=== PATIENT | male | born 1940 | race Caucasian/White ===

== ENCOUNTER → 2016-12-04 19:03 | Outpatient (CLI) | payer MEDICARE, OTHER ==
[~2016-12-04 19:03] MED LIST: ELIQUIS2.5 MG PO; HYDROCODONE-APA1 TAB PO; OMEPRAZOLE20 M1 PO
[2016-12-17 15:09] VITALS: BMI 31.2
== END | disposition home or self-care (01) ==
LOC: D.LABREF 19:03
DX: M17.12 Unilateral primary osteoarthritis, left knee (principal); Z11.8 Encounter for screening for other infectious and parasitic diseases

== ENCOUNTER 2016-12-13 08:30 | Inpatient (IN) | payer MEDICARE, OTHER ==
[~2016-12-13] VITALS: Ht 182.9 cm; Wt 104.5 kg
[2016-12-13 08:29] LABS: BASOPHILS 0.3 % (0.0-2.0); EOSINOPHILS 3.4 % (0-7); HEMATOCRIT 47.6 % (42.0-54.0); HEMOGLOBIN 16.1 g/dL (13.5-17.5); IMMATURE GRANULOCYTES 0.2 % (0-5); LYMPHOCYTES 26.2 % (15-50); MCH 33.3 pg (26.0-34.0); MCHC 33.8 g/dL (31.0-37.0); MCV 98.3 fL (80.0-100.0); MEAN PLATELET VOLUME 10.7 fL (7.4-10.4); MONOCYTES 10.6 % (2-11); NEUTROPHILS 59.3 % (40-80); PLATELET COUNT 176 10x3/uL (130-400); RBC 4.84 10x6/uL (4.20-6.10); RDW 12.9 % (11.5-14.5); WBC 6.5 10x3/uL (4.8-10.8)
[~2016-12-13 08:30] MED LIST changes: -ELIQUIS2.5 MG PO; -HYDROCODONE-APA1 TAB PO
[2016-12-13 08:34] LABS: APTT 26.5 SECONDS (22.8-39.4); INR 1.07 (0.85-1.17); PROTIME 13.8 SECONDS (11.6-15.0)
[2016-12-13 08:41] LABS: CALC OSMOLALITY 285 mosm/kg (275-300); CALCIUM 9.1 mg/dL (8.5-10.1); CARBON DIOXIDE 30.5 mmol/L (21.0-32.0); CHLORIDE - SERUM 106 mmol/L (98-107); GLUCOSE 140 mg/dL (74-106); POTASSIUM - SERUM 4.5 mmol/L (3.5-5.1); SODIUM 142 mmol/L (136-145); UREA NITROGEN 14 mg/dL (7-18); eGFR NON AFRICAN AMERICAN 77 mL/min (90-120)
[2016-12-13 09:02] LABS: APPEARANCE CLEAR (CLEAR); COLOR YELLOW (YELLOW)
[2016-12-13 09:03] LABS: BILIRUBIN NEGATIVE (NEGATIVE); GLUCOSE NEGATIVE (NEGATIVE); KETONE NEGATIVE (NEGATIVE); LEUKOCYTE ESTERASE NEGATIVE (NEGATIVE); NITRITE NEGATIVE (NEGATIVE); PROTEIN NEGATIVE (NEGATIVE); UROBILINOGEN NORMAL (NORMAL)
[2016-12-17] VITALS (10 sets, daily range): BP systolic 124–146; BP diastolic 61–87; Ht 182.9 cm; Wt 104.5 kg
--- NOTE | 2016-12-17 09:07 | NUR ---
RIGTH KNEE SCRUBBED WITH ALCOHOL AND HIBICLENS
--- NOTE | 2016-12-17 10:38 | NUR ---
PATIENT TO UNIT AT THIS TIME. NO COMPLAINTS, VS STABLE. STATED NO PAIN. LSCD ON. RIGHT LEG WITH MARQUISE WRAP CDI. FAMILY AT BEDSIDE. CALL LIGHT WITHIN REACH. NEUROVASCULAR CHECKS WNL.
--- NOTE | 2016-12-17 12:00 | NUR ---
PATIENT TOLERATED REGULAR DIET WITH NO PROBLEMS AT THIS TIME.
--- NOTE | 2016-12-17 15:00 | NUR ---
PATIENT SITTING UP IN BED READING. NO COMPLAINTS AT THIS TIME. IV INTACT. VS STABLE. NEUROVASCULAR CHECKS WNL. CALL LIGHT WITHIN REACH.
--- NOTE | 2016-12-17 16:00 | NUR ---
IS GIVEN AND EXPLAINED TO PATIENT. VERBALIZED UNDERSTANDING. CALL LIGHT WITHIN REACH. VS STABLE. NEUROVASCULAR CHECKS WNL.
--- NOTE | 2016-12-17 18:45 | NUR ---
PATIENT IN BED WITH IV INTACT. CPM ON. STARTED AT 1830. NO COMPLAINTS OF PAIN AT THIS TIME. NEUROVASCULAR CHECKS INTACT. CALL LIGHT WITHIN REACH.
[2016-12-18 01:00] VITALS: BP 140/63
--- NOTE | 2016-12-18 01:33 | NUR ---
PATIENT RESTING IN BED ON CPM MACHINE. PATIENT DENIES NEEDS AT THIS TIME. BED IN LOWEST POSITION AND CALL LIGHT WITHIN REACH.
--- NOTE | 2016-12-18 07:30 | NUR ---
REC'D PATIENT LYING SEMI FOWLERS IN BED. ALERT AND ORIENTED X4. DENIES PAIN @ THIS TIME. DENIES HEARING PROBLEMS. WEARS GLASSES. MUCUS MEMBRANES PINK AND MOIST. SKIN WARM AND DRY. HAS ORIF TO THE RIGHT KNEE. CAST AND DRESSING. HAS A LEFT FORARM RUNNING @ 100ML NS. HAD A CPM ON, IS TO COME OFF @ 0830. HAS A LEFT SCD. LUNGS CLEAR IN ALL LOBES. BOWELS ACTIVE X4. ABDOMEN SOFT NON-TENDER TO TOUCH. PERIPHERAL PULESES @ 2+. IS GOING TO GET UP TODAY WITH PSYICAL THERAPY. BED LOW, LOCKED, CALL LIGHT IN REACH. INSTRUCTED TO CALL IF NEEDED ANYTHING. PATIENT VERBALIZED UNDERSTANDING.
[2016-12-18 08:19] VITALS: BP 143/57
[2016-12-18 08:23] LABS: HEMATOCRIT 39.4 % (42.0-54.0); HEMOGLOBIN 13.4 g/dL (13.5-17.5); MEAN PLATELET VOLUME 10.6 fL (7.4-10.4); RBC 4.06 10x6/uL (4.20-6.10); WBC 8.8 10x3/uL (4.8-10.8)
--- NOTE | 2016-12-18 08:45 | NUR ---
PYSICAL THERAPY CAME IN I WAS FLUSHING AND CHANGING OUT LINE IN THE IV. WAS CALLED BACK INTO THE ROOM BC BLOOD PRESSURE DROPPED AFTER HE WALKED. HE WAS WANTING SOMETHING FOR PAIN. ADMINISTERED PAIN MED PRESCRIBED. GOING TO COME BACK IN 30 MIN TO CHECK TO SEE IF PAIN HAS SUBSIDED. PATIENT IS NOW SITTING UP IN CHAIR READING BIBLE. CALL LIGHT IN REACH.
--- NOTE | 2016-12-18 09:00 | NUR ---
CHECKED BACK ON PATIENT WAS RESTING IN CHAIR. STATED HE WAS NO LONGER IN PAIN. INSTUCTED TO CALL IF NEEDED ANYTHING. PATIENT VERBALIZED UNDERSTANDING.
--- NOTE | 2016-12-18 10:49 | NUR ---
* Is the patient Alert and Oriented? Yes 0 * How many steps to enter\exit or inside your home? 1 0 * PCP Dr. Gutierrez 0 * Pharmacy [facility] on [address] 0 * Preadmission Environment Home with Family 0 * ADLs Independent 0 * Equipment Bedside Commode Cane Rolling Walker 0 * List name and contact numbers for known caregivers / representatives who currently or will assist patient after discharge: Spouse - Peggy [phone] 0 * Additional services required to return to the preadmission environment? Yes 0 * Can the patient safely return to the preadmission environment? Yes 0 * Has this patient been hospitalized within the prior 30 days at any hospital? No 12/18/2016 10:50 DCP: Discharge Planning Patient Name: LAUREN ZHANG Admission Status: Elective Accout number: [id number] Admission Date: 12-17-2016 : 1940 Admission Diagnosis: Attending: SARA Current LOS: 1 Anticipated DC Date: 12-19-2016 Planned Disposition: Outpatient PT\OT Primary Insurance: MEDICARE A & B Discharge Planning Comments: CM met with patient to assess dc plans/needs. Patient states he lives at home with his , Peggy. He reports he is independent with all ADL's & IADL's. He has a walker, cane, & BSC at home. A CPM has been ordered by MD office prior to admission through [facility] & will be delivered to the home after discharge. He has chosen to go to [facility] for OP services - appt. scheduled for 12/20 @ 1030. OP PT Rx faxed. Anticipate DC tomorrow afternoon. CM will follow. Anesthesiology Resident: Luisa Hutchison
[2016-12-18 11:46] VITALS: BP 124/55
--- NOTE | 2016-12-18 12:40 | NUR ---
PATIENT SITTING UP IN CHAIR AT BEDSIDE. NO SIGNS OF DISTRESS NOTED. PRIMARY NURSE MARCELLA DOTSON PRESENT. CALL LIGHT IN REACH.
--- NOTE | 2016-12-18 13:34 | NUR ---
PATIENT LYING IN BED IN LOW FOWLERS. IS IN THE ROOM WITH HIM. PATIENT STATED THAT HE WANTED A PAIN PILL. PAIN LEVEL WAS @ A 4/10 ONCE HE WAS PUT BACK TO BED FROM BEING IN THE CHAIR AND WALKING. ADMINISTERED MEDS PRESCRIBED. BED LOW, LOCKED, CALL LIGHT IN REACH. INSTRUCTED TO CALL IF NEEDED ANYTHING. PATIENT VERBALIZED UNDERSTANDING.
[2016-12-18 16:10] VITALS: BP 130/59
--- NOTE | 2016-12-18 19:25 | NUR ---
PATIENT IS RESTING IN BED ON CPM MACHINE. PATIENT REQUESTED PAIN MEDICATION WHEN IT IS DUE AND DENIES OTHER NEEDS AT THIS TIME. BED IN LOWEST POSITION AND CALL LIGHT WITHIN REACH.
--- NOTE | 2016-12-18 19:34 | NUR ---
CPM IN PLACE NO DISTRESS TOLERATES WELL
[2016-12-18 21:00] VITALS: BP 140/65
[2016-12-19 01:00] VITALS: BP 148/62
[2016-12-19 05:00] VITALS: BP 132/62
[2016-12-19 05:59] LABS: HEMATOCRIT 36.7 % (42.0-54.0); HEMOGLOBIN 12.2 g/dL (13.5-17.5); MCH 32.6 pg (26.0-34.0); MCHC 33.2 g/dL (31.0-37.0); MCV 98.1 fL (80.0-100.0); MEAN PLATELET VOLUME 10.7 fL (7.4-10.4); RBC 3.74 10x6/uL (4.20-6.10); RDW 13.1 % (11.5-14.5); WBC 9.3 10x3/uL (4.8-10.8)
--- NOTE | 2016-12-19 07:30 | NUR ---
RECIEVED PT DURING WALKING ROUNDS. PT RESTING COMFORTABLY IN BED WITH NO COMPLAINTS OF PAIN OR DISCOMFORT AT THIS TIME. ASSESSMENT DONE PER FLOWSHEET. CPM ON AT THIS TIME. BED IN LOW POSITION AND CALL LIGHT WITHIN REACH. WILL CONTINUE TO MONTIOR.
[2016-12-19 08:00] VITALS: BP 135/65
[2016-12-19] MEDS ORDERED: ELIQUIS2.5 MG PO (08:31)
[2016-12-19] MEDS ORDERED: HYDROCODONE-APA1 TAB PO (08:37)
--- NOTE | 2016-12-19 08:45 | NUR ---
CMP OFF AT THIS TIME. PT WAS UP WITH PT AND PLACED IN CHAIR. PT TOLERATED WELL. CALL LIGHT WITHIN REACH. WILL CONTINUE TO MONITOR.
--- NOTE | 2016-12-19 10:00 | NUR ---
PAIN MEDICATION WAS GIVEN AT THIS TIME FOR A PAIN LEVEL OF 5 ON A SCALE OF 1-10. PT RESTING IN BED, CALL LIGHT WITHIN REACH. WILL CONTINUE TO MONITOR.
--- NOTE | 2016-12-19 10:07 | NUR ---
12/19/2016 10:05 DCP: Discharge Planning Patient Name: LAUREN ZHANG Encounter No: [id number] : 1940 Primary Insurance: MEDICARE A & B Anticipated DC Date: 12-19-2016 Planned Disposition: Outpatient PT\OT External Planned Provider: [facility] DCP follow-up note: DC order rec'd. CPM will be delivered to the home after dc. Patient and family in agreement with discharge plan. No changes to plan. Case management will follow and assist as needed. Luisa Hutchison
--- NOTE | 2016-12-19 10:25 | NUR ---
AWAKE AND ALERT. ORIENTED X3. NO C/O AT THIS TIME. RIGHT LEG IS SWOLLEN 2-3 EDEMA. PULSES PALPABLE. DRESSING TO RIGHT KNEE IS DRY AND INTACT. DENIES NEEDS.
--- NOTE | 2016-12-19 13:08 | NUR ---
IV REMOVED AND DRESSING PLACED, CATH INTACT. DRESSING CHANGED TO RIGHT KNEE, PT AWAITING DISCHARGE. WILL CONTINUE TO MONITOR.
--- NOTE | 2016-12-19 14:32 | NUR ---
DISCHARGE INSTRUCTIONS GIVEN AND PT DISCHARGED VIA WHEELCHAIR TO HOME WITH A FAMILY MEMBER.
--- NOTE | 2017-01-07 18:57 | OP ---
PATIENT NAME: LAUREN ZHANG MEDICAL RECORD: [id number] :[birth year] LOCATION:[id number] ADMISSION DATE:12/17/16 SURGEON: LAUREN MAHONEY MD DATE OF OPERATION: 12/17/2016 PREOPERATIVE DIAGNOSIS: Degenerative arthritis of the right knee. POSTOPERATIVE DIAGNOSIS: Degenerative arthritis of the right knee. PROCEDURE: Right total knee arthroplasty. SURGEON: Lauren Mahoney MD. ANESTHESIA: General. INTRAOPERATIVE COMPLICATIONS: None. SUMMARY OF PATHOLOGIC FINDINGS: The patient had extensive tricompartmental osteoarthritis consistent with the preoperative diagnosis. OPERATIVE SUMMARY IN DETAIL: After obtaining the preoperative orthopedic preoperative reported as well as anesthetic consultation, evaluation and clearance, the patient was brought to the operating room and placed on the operating table in supine position. After adequate general laryngeal mask airway was administered, tourniquet was placed about the proximal aspect of the right lower extremity. Right lower extremity was then prepped and draped in a routine sterile fashion. The leg was elevated and exsanguinated; tourniquet was inflated to 350 mmHg. Routine midline incision was taken down for paramedian arthrotomy. Distal femur was exposed. Distal femoral intramedullary guide hole was created for distal femoral guided intramedullary-guided cutting. The proximal tibia likewise was exposed in its entirety. Soft tissue excision was done in the usual fashion. Intramedullary guide hole was created ____ proximal tibial cut was made. Measurements were taken. Distal femoral chamfer cuts were followed by placement of the implants, taken through range of motion and found to be excellent and stable in all planes. The articular surface of the patella was removed for patellar resurfacing arthroplasty. Final distal femoral and proximal tibial preparations were made. The wound was irrigated and the final components were cemented into place. Excess cement was removed and after it was allowed to harden, the knee was taken through a range of motion and found to be stable in all planes. Paramedian arthrotomy was closed with #2 Ethibond followed by #1 Vicryl, 2-0 Vicryl and skin valerie. Sterile dressings were applied. The patient was awakened and taken to recovery in stable condition. All final needle and sponge counts were correct. TRANSINT:[id number] Voice Confirmation ID: [id number] DOCUMENT ID: [id number] LAUREN MAHONEY MD at 1857 CC: [id number] DICTATION DATE: 01/03/17 1317 ENTERTAINMENT CENTRE MANAGER: 01/03/176 DIS IN 12/19/16 [place] [id number] [facility] [address]
== END 2016-12-19 14:33 | disposition home or self-care (01) | DRG 470 ==
LOC: D.SDCHOLD 08:30 → D.MS 12-17 05:35 → D.SDCHOLD 12-17 08:00 → D.MS 12-17 09:36
PROVIDERS: ADMIT Orthopaedic Surgery
PROC: 0SRC0J9 Replacement of Right Knee Joint with Synthetic Substitute, Cemented, Open Approach (ICD-10-PCS; principal; 2016-12-17 08:00)
DX: M17.11 Unilateral primary osteoarthritis, right knee (principal); D62 Acute posthemorrhagic anemia; M19.90 Unspecified osteoarthritis, unspecified site; K21.9 Gastro-esophageal reflux disease without esophagitis; G47.33 Obstructive sleep apnea (adult) (pediatric)

== ENCOUNTER → 2016-12-24 11:10 | Outpatient (CLI) | payer MEDICARE, OTHER ==
[2016-12-17 15:09] VITALS: BMI 31.2
[~2016-12-24 11:10] MED LIST changes: +ELIQUIS2.5 MG PO; +HYDROCODONE-APA1 TAB PO
== END | disposition home or self-care (01) ==
LOC: D.US 11:10
DX: M79.604 Pain in right leg (principal); R60.0 Localized edema

== ENCOUNTER → 2021-03-01 20:17 | Outpatient (CLI) | payer MEDICARE, OTHER ==
[2016-12-17 15:09] VITALS: BMI 31.2
[2021-03-01 20:49] LABS: BASOPHILS 0.3 % (0-2); EOSINOPHILS 1.9 % (0-7); HEMATOCRIT 38.5 % (42.0-54.0); HEMOGLOBIN 11.7 g/dL (13.5-17.5); IMMATURE GRANULOCYTES 0.4 % (0-5); LYMPHOCYTE ABS# 1.93 10x3/uL (1.32-3.57); LYMPHOCYTES 26.3 % (15-50); MCH 30.6 pg (26.0-34.0); MCHC 30.4 g/dL (31.0-37.0); MCV 100.8 fL (80.0-100.0); MEAN PLATELET VOLUME 9.7 fL (7.4-10.4); MONOCYTES 4.8 % (2-11); NEUTROPHIL ABS# 4.88 10x3/uL (1.78-5.38); NEUTROPHILS 66.3 % (40-80); RBC 3.82 10x6/uL (4.20-6.10); RDW 15.4 % (11.5-14.5); WBC 7.4 10x3/uL (4.8-10.8)
[2021-03-01 20:54] LABS: PLATELET COUNT 470 10x3/uL (130-400)
== END | disposition home or self-care (01) ==
LOC: D.LABREF 20:17
PROVIDERS: ATTEND Family Medicine
DX: Z48.3 Aftercare following surgery for neoplasm (principal); Z43.6 Encounter for attention to other artificial openings of urinary tract; C67.9 Malignant neoplasm of bladder, unspecified; N39.0 Urinary tract infection, site not specified